=== PATIENT | male | born 1980 | race Caucasian/White ===

== ENCOUNTER 2020-10-31 23:09 | Emergency (ER) | payer OTHER, SELFPAY ==
--- NOTE | ~2020-10-31 | XR_ITS ---
EXAMINATION: XR hand LT min 3V INDICATION: Left hand pain TECHNIQUE: Three views of the left hand are obtained. COMPARISON: None available FINDINGS: Bone alignment is normal. No fracture is identified. The joint spaces are normal. A subtle 2 mm projects in the soft tissues dorsal and medial to the third distal phalanx. IMPRESSION: 1. No acute osseous abnormality. 2. Possible radiopaque foreign body in the soft tissues dorsal and medial to the third distal phalanx . Reviewed, dictated and finalized at location A. IMPRESSION: 1. No acute osseous abnormality. 2. Possible radiopaque foreign body in the soft tissues dorsal and medial to th e third distal phalanx.
--- NOTE | ~2020-10-31 | XR_ITS ---
EXAMINATION: XR chest 2V DATE: 10/31/2020 23:50 INDICATION: Chest pain TECHNIQUE: PA and lateral views of the chest are obtained. COMPARISON: 01/02/2019 FINDINGS: The lungs are free of acute opacities. There is no pleural effusion or pneumothorax. The ca rdiomediastinal silhouette is normal. The visualized bones and soft tissues are unremarkable. IMPRESSION: 1. No acute cardiopulmonary abnormality. Reviewed, dictated and finalized at location A.
[2020-10-31 23:13] VITALS: BP 136/80; PULSE 82; RESP 17; TEMP 37.1; O2SAT 98
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
== END 2020-11-01 01:22 | disposition home or self-care (01) ==
PROVIDERS: Emergency Provider Emergency Medicine
DX: S60.222A Contusion of left hand, initial encounter (principal); F17.200 Nicotine dependence, unspecified, uncomplicated; R93.6 Abnormal findings on diagnostic imaging of limbs; V49.40XA Driver injured in collision with unspecified motor vehicles in traffic accident, initial encounter
CPT/HCPCS: 71046; 73130; 99284

== ENCOUNTER 2021-02-27 19:59 | Emergency (ER) | payer OTHER, SELFPAY ==
--- NOTE | ~2021-02-27 | XR_ITS ---
XR tibia fibula RT 2V 02/27/2021 20:28 Indication: Laceration. Procedure: 2 views right tibia/fibula Comparison: 10/07/2011 Findings: No fracture, subluxation or dislocation. No significant soft tissue abnormality. There is a small linear foreign body overlying the distal tibia. Impression: 1: Small linear foreign body medial to the tibial shaft. No underlying bone or joint abnormality. Reviewed, dictated and finalized at location A. N WINDER Impression: 1: Small linear foreign body medial to the tibial shaft. No underlying bone or joint abnormality.
[2021-02-27 20:00] VITALS: BP 102/58; PULSE 72; RESP 16; TEMP 36.6; O2SAT 95
--- NOTE | 2021-02-27 20:17 | ED.WOUNDLAC ---
HPI - Wound/Laceration General Chief Complaint: Wound/Laceration Stated Complaint: Safe fall on me , wound Time Seen by Provider: 02/27/21 20:11 Source: patient and RN notes reviewed Mode of arrival: ambulatory Limitations: no limitations History of Present Illness HPI narrative: This a 40 year old male who presents for evaluation of right lower leg laceration. He states approximately 45 minutes ago he was lifting a safe and it fell onto his leg. He has a laceration, and he is able walk and move. He denies weakness, numbness or tingling. Bleeding is controlled. He took 20 mg of oxycodone prior to arrival. He denies hitting his head. Related Data Home Medications Medication Instructions Recorded Confirmed hydrocodone-acetaminophen 02/27/21 Allergies Allergy/AdvReac Type Severity Reaction Status Date / Time acetaminophen Allergy Mild Nausea Verified 02/27/21 20:51 propoxyphene Allergy Mild Unknown Verified 02/27/21 20:51 codeine Allergy Unknown Nausea and Verified 02/27/21 20:51 Vomiting Penicillins Allergy Unknown Nausea Verified 02/27/21 20:51 Review of Systems Review of Systems: All systems reviewed & are unremarkable except as noted in HPI and below PMFSH Past Medical History Medical History (Updated 02/28/21 @ 00:00 by Background Daemon) Patient denies medical problems Surgical History Surgical History (Updated 02/27/21 @ 22:31 by Velma Fregoso MD) History of skin graft Family History Family History (Updated 10/11/11 @ 14:43 by DOCTOR UNKNOWN) Other Family history of arthritis Hypertension Social History Social History (Updated 02/27/21 @ 22:31 by Velma Fregoso MD) Smoking packs per day: 1 Smoking cigarettes per day: 20.0 Smoking status: Current every day smoker Exam Const: General: alert Orientation/consciousness: patient oriented x3 Eyes: EOM: EOMs intact bilaterally Resp: Effort & Inspection: normal respiratory effort Skin: Other: see extremity for laceration description Neuro: General: patient oriented x3, moves all extremities and CN's II-XI intact bilaterally Extrem: Other: FROM right knee, right ankle, right foot, sensation intact, strong palpable DP. PT pulses, there is 5 cm laceration linear mid tib fib with exposed muscle, no bone exposure, Psych: Mental Status: mental status grossly normal Affect: normal affect Course Reevaluation(s) Reevaluation #1: I have discussed wound care with patient and return precautions. I discussed with patient radiologist report possible medial fb. I did not find FB on exam. Patient was made aware of xray findings. Date: 02/27/21 Time: 22:36 Vital Signs Vital signs: Vital Signs Temperature 97.9 F 02/27/21 20:00 Pulse Rate 72 02/27/21 20:00 Respiratory Rate 16 02/27/21 20:00 Blood Pressure 102/58 L 02/27/21 20:00 Pulse Oximetry 95 02/27/21 20:00 Temperature 97.9 F 02/27/21 20:00 Pulse Rate 69 02/27/21 22:53 Respiratory Rate 16 02/27/21 22:53 Blood Pressure 130/79 02/27/21 22:53 Pulse Oximetry 97 02/27/21 22:53 Procedures Laceration Laceration 1: Date: 02/27/21 Time: 22:00 Site: lower extremity (right lower leg) Side (If applicable): right Size (cm): 5 Description: irregular and clean Depth: simple, single layer Local Anesthetic: lidocaine 2% Amount of anesthesia used (mL): 6 Pre-repair: wound explored, irrigated, irrigated extensively and minor debridement ====== Skin Level ====== Skin layer closed with: damir (15) Size (cm): 4-0 Number of sutures: 15 Technique: simple, interrupted ====== Subcutaneous Layer ====== Subcutaneous layer closed with: vicryl Size: 4-0 Number of sutures: 5 Technique: simple, interrupted ====== Muscle Layer ====== ====== Tendon Layer ====== MDM - Wound/Laceration Imaging Data
[2021-02-27 20:49] VITALS: BP 117/78; PULSE 66; RESP 16; O2SAT 98
[2021-02-27 22:53] VITALS: BP 130/79; PULSE 69; RESP 16; O2SAT 97
== END 2021-02-27 22:56 | disposition home or self-care (01) ==
PROVIDERS: Emergency Provider General Practice
DX: S81.821A Laceration with foreign body, right lower leg, initial encounter (principal); F17.210 Nicotine dependence, cigarettes, uncomplicated; W20.8XXA Other cause of strike by thrown, projected or falling object, initial encounter
CPT/HCPCS: 12032; 73590; 99283